=== PATIENT | female | born 1965 | race Caucasian/White ===

== ENCOUNTER → 2017-01-04 | Outpatient (CLI) | payer BC | LOC: COL.RAD 06:59 | DX: M48.06 Spinal stenosis, lumbar region (principal); M54.5 Low back pain; M54.16 Radiculopathy, lumbar region; R29.2 Abnormal reflex ==

== ENCOUNTER → 2017-03-28 | Outpatient (CLI) | payer BC | LOC: MC.RAD 08:24 | DX: Z12.31 Encounter for screening mammogram for malignant neoplasm of breast (principal) ==

== ENCOUNTER → 2017-10-31 | Outpatient (CLI) | payer BC ==
[~2017-10-31] VITALS: Ht 167.6 cm; Wt 116.1 kg
[~2017-10-31] MED LIST: ADIPEX-P37.5 MG PO; TYLENOL 500MG500 MG PO; ULTRAM 50MG TAB50 MG PO; VOLTAREN 50MG T50 MG PO; ZESTRIL 10MG10 MG PO
[2017-10-31 15:52] VITALS: BP 160/90; PULSE 72
== END ==
LOC: LIGHT 10:05
DX: E66.01 Morbid (severe) obesity due to excess calories (principal); Z68.41 Body mass index [BMI] 40.0-44.9, adult; Z71.3 Dietary counseling and surveillance; I10 Essential (primary) hypertension
CPT/HCPCS: G0463

== ENCOUNTER → 2017-11-27 | Outpatient (CLI) | payer BC | LOC: LIGHT 14:18 | DX: Z01.89 Encounter for other specified special examinations (principal) ==

== ENCOUNTER → 2017-11-30 | Outpatient (CLI) | payer BC ==
[~2017-11-30] VITALS: Ht 167.6 cm; Wt 112.5 kg
[2017-11-30 15:35] VITALS: BP 158/88; PULSE 64
== END ==
LOC: LIGHT 09:18
DX: E66.01 Morbid (severe) obesity due to excess calories (principal); Z68.41 Body mass index [BMI] 40.0-44.9, adult; Z71.3 Dietary counseling and surveillance; I10 Essential (primary) hypertension; M51.37 Other intervertebral disc degeneration, lumbosacral region
CPT/HCPCS: G0463

== ENCOUNTER → 2017-12-19 | Outpatient (CLI) | payer BC | LOC: LIGHT 10:02 → BHSO 10:02 | DX: Z01.818 Encounter for other preprocedural examination (principal) ==

== ENCOUNTER → 2018-01-04 | Outpatient (CLI) | payer BC ==
[~2018-01-04] VITALS: Ht 167.6 cm; Wt 105.7 kg
[~2018-01-04] MED LIST changes: +PROCARDIA10 MG PO
[2018-01-04 16:16] VITALS: BP 130/72; PULSE 68
== END ==
LOC: LIGHT 10:22
DX: E66.01 Morbid (severe) obesity due to excess calories (principal); Z68.37 Body mass index [BMI] 37.0-37.9, adult; Z71.3 Dietary counseling and surveillance; I10 Essential (primary) hypertension; M51.37 Other intervertebral disc degeneration, lumbosacral region
CPT/HCPCS: G0463

== ENCOUNTER → 2018-02-08 | Outpatient (CLI) | payer BC ==
[~2018-02-08] VITALS: Ht 167.6 cm; Wt 100.0 kg
[2018-02-08 16:16] VITALS: BP 110/80; PULSE 76
== END ==
LOC: LIGHT 16:06
DX: E66.01 Morbid (severe) obesity due to excess calories (principal); Z68.35 Body mass index [BMI] 35.0-35.9, adult; Z71.3 Dietary counseling and surveillance; I10 Essential (primary) hypertension; M51.37 Other intervertebral disc degeneration, lumbosacral region
CPT/HCPCS: G0463

== ENCOUNTER → 2018-03-22 | Outpatient (CLI) | payer BC ==
[~2018-03-22] VITALS: Ht 167.6 cm; Wt 93.2 kg
[2018-03-22 16:48] VITALS: BP 106/80; PULSE 60
== END ==
LOC: LIGHT 14:04
DX: E66.01 Morbid (severe) obesity due to excess calories (principal); Z68.33 Body mass index [BMI] 33.0-33.9, adult; Z71.3 Dietary counseling and surveillance; I10 Essential (primary) hypertension; M51.37 Other intervertebral disc degeneration, lumbosacral region
CPT/HCPCS: G0463

== ENCOUNTER → 2020-11-05 | Outpatient (CLI) | payer BC | LOC: MC.RAD 09:32 | DX: Z12.31 Encounter for screening mammogram for malignant neoplasm of breast (principal) ==